=== PATIENT | male | born 1960 | race Two or more races ===

== ENCOUNTER 2021-09-11 12:31 | Outpatient (CLI) | payer OTHER ==
[~2021-09-11 12:31] MED LIST: HYDROCORTISONE28 G1 TP; PREDNISONE5 MG/DOSE- PO; [UNRECOGNIZED DRUG - OTHER] TP
== END 2021-09-11 12:56 | disposition home or self-care (01) ==
LOC: MRI 12:31
PROVIDERS: ATTEND Orthopaedic Surgery
DX: M25.561 Pain in right knee (principal); M25.562 Pain in left knee
CPT/HCPCS: 73718

== ENCOUNTER 2022-02-17 08:28 | Outpatient (CLI) | payer OTHER | END 2022-02-17 09:42 | disposition home or self-care (01) | LOC: MRI 08:28 | PROVIDERS: ATTEND Orthopaedic Surgery | DX: M25.561 Pain in right knee (principal) | CPT/HCPCS: 73721 ==

== ENCOUNTER 2023-10-14 14:12 | Outpatient (CLI) | payer OTHER | END 2023-10-14 14:20 | disposition home or self-care (01) | LOC: MRI 14:12 | PROVIDERS: ATTEND Physical Medicine & Rehabilitation | DX: M54.17 Radiculopathy, lumbosacral region (principal) | CPT/HCPCS: 72148 ==